=== PATIENT | female | born 1985 | race Caucasian/White ===

== ENCOUNTER 2021-01-06 13:55 | Outpatient (CLI) | payer BC, SELFPAY ==
--- NOTE | ~2021-01-06 | US_ITS ---
EXAMINATION: US OB transvaginal DATE: 01/06/2021 14:13 INDICATION: viability TECHNIQUE: Real-time transvaginal obstetric ultrasound. FINDINGS: No prior studies for comparison. Patient history there are previous ultrasounds at outside institution showing no evidence for h eart motions. The uterus measures 13.2 x 7.6 x 9.2 cm. There is an intrauterine gestational sac measuring 3.71 cm c orresponding to 8 week 6 day gestation. No pole or yolk sac are definitely identified. No heart motions detected. The ovaries are within normal limits without associated mass. No free fluid. IMPRESSION: 1. Intrauterine gestational sac without evidence for pole or yolk sac corresponding to 8 week 6 day gestation, compatible with blighted ovum/failed . Reviewed, dictated and finalized at location B. IMPRESSION: 1. Intrauterine gestational sac without evidence for pole or yolk sac cor responding to 8 week 6 day gestation, compatible with blighted ovum/failed preg rodney.
== END 2021-01-06 13:56 ==
LOC: MICIMG 13:56
PROVIDERS: Visit Provider Nurse Practitioner
DX: O36.80X1 Pregnancy with inconclusive fetal viability, fetus 1 (principal); Z3A.01 Less than 8 weeks gestation of pregnancy
CPT/HCPCS: 76817

== ENCOUNTER → 2021-01-07 00:34 | Outpatient (CLI) | payer BC, SELFPAY ==
[2021-01-07 17:32] LABS: SARS-CoV-2 RNA PCR Negative
== END ==
PROVIDERS: Visit Provider Obstetrics & Gynecology Gynecology
DX: Z01.812 Encounter for preprocedural laboratory examination (principal); Z20.822 Contact with and (suspected) exposure to COVID-19
CPT/HCPCS: C9803; U0003; U0005

== ENCOUNTER 2021-01-08 04:47 | Day surgery (SDC) | payer BC, SELFPAY ==
[2021-01-08 06:21] VITALS: BMI 29.7
[2021-01-08 06:26] VITALS: BP 165/96; PULSE 112; RESP 22; TEMP 36.3; O2SAT 100
[2021-01-08] MEDS: LACTATED RINGERS 1,000 ML 30 ML IV CONT (06:40)
[2021-01-08] MEDS: ACETAMINOPHEN 500 MG TABLET 1000 MG PO (06:47)
--- NOTE | 2021-01-08 07:10 | WPDANESEPPF ---
Anes - Initial Pre Proc Eval Procedure: Operation Date: 01/08/21 07:30 Proposed Procedures p Suction Dilatation and Curettage - Irma Gilmore MD Date/Time: 01/08/21 07:10 Surgeon: Irma Gilmore MD Pre Op Diagnosis: blighted ovum Patient Data Age: 35 Gender: F Height: 5 ft 3 in Weight: 76.2 kg Last Vital Signs Temp 36.3 C L 01/08/21 06:26 Pulse 112 H 01/08/21 06:26 Resp 22 H 01/08/21 06:26 BP 165/96 H 01/08/21 06:26 Pulse Ox 100 01/08/21 06:26 Allergies Allergy/AdvReac Type Severity Reaction Status Date / Time No Known Allergies Allergy Verified 01/08/21 06:51 Home Medications Medication Instructions Recorded Confirmed Type No Home Medications 01/08/21 01/08/21 History Patient hx anesthesia problems: none Family hx anesthesia problems: none PMFSH Social History Social History Smoking packs per day: 1 Smoking cigarettes per day: 20.0 Years smoked: 18 Smoking pack-years: 18.00 Smoking status: Current every day smoker Tobacco type: cigarettes Alcohol intake: current Substance use: current Substance use type: marijuana Living arrangements: with family Gender identity (if verbalized by the patient): Female Spiritual care concerns: No Agree to blood products: Yes Anes - Eval Final PreProcedure Day of Procedure 01/08/21 07:10 Patient weight: overweight Heart: regular rate and rhythm Lungs: clear to auscultation Airway: Mallampati scale class II Neurological: alert and oriented Last oral intake: >/= 8 hours ASA classification: II Emergent: no Anesthetic plan: proceed Anesthesia type and monitoring: general GIVS and standard monitoring Informed Consent: The patient's anesthetic plan and its attendant risks and benefits were discussed with the patient/family/POA. Questions were solicited and answers provided to the satisfaction of the patient/family/POA.
--- NOTE | 2021-01-08 07:17 | WPDHPUPDATE1 ---
History and Physical Update Update Date/Time: 01/08/21 07:17 History and Physical has been reviewed, including an updated exam of the patient. There are NO changes in the patient's condition. Risks, benefits, and alternatives have been discussed and questions answered. Patient agrees to proceed with procedure.
--- NOTE | 2021-01-08 07:17 | PM.HPGS ---
History of Present Illness History of Present Illness Consent: Risks, benefits, and alternatives have been discussed and questions answered. Patient agrees to proceed with procedure. Chief complaint: blighted ovum Narrative: Edyta Marques is a 35 year old female with u/s showing 8 6/7 wk sac without a yolk sac or pole. HCG is 9900. Discussed blighted ovum with couple and options given. Patient chose to proceed with D&C. Risks of infection, bleeding, and perforation discussed. Post op expectations discussed. Patient wants to start control pills post op. Questions answered and agrees to proceed. Review of Systems Review of Systems: Narrative: not repeated day of surgery; patient states no changes in status PMF Surgical History Surgical History (Updated 01/08/21 @ 07:19 by Irma Gilmore MD) History of S/P tonsillectomy Social History Social History Smoking packs per day: 1 Smoking cigarettes per day: 20.0 Years smoked: 18 Smoking pack-years: 18.00 Smoking status: Current every day smoker Tobacco type: cigarettes Alcohol intake: current Substance use: current Substance use type: marijuana Living arrangements: with family Gender identity (if verbalized by the patient): Female Spiritual care concerns: No Agree to blood products: Yes Meds Home Medications and Allergies Home Medications Medication Instructions Recorded Confirmed Type No Home Medications 01/08/21 01/08/21 History Allergies Allergy/AdvReac Type Severity Reaction Status Date / Time No Known Allergies Allergy Verified 01/08/21 06:51 Vital Signs Vital Signs - 24 hr 01/08/21 06:26 Temperature 97.4 F L Pulse Rate 112 H Respiratory Rate 22 H Blood Pressure 165/96 H Pulse Oximetry 100 Exam Const: General: comfortable and no acute distress : External Female Exam: normal external appearance Speculum Exam - Vagina: normal appearance of the vagina Speculum Exam - Cervix: normal appearance of the cervix Bimanual exam- vagina & uterus: normal bimanual exam Bimanual Exam- Adnexa, other: normal adnexae Assessment and Plan Assessment and plan (1) Missed : Code(s): O02.1 - Missed Status: Acute Assessment and Plan: Plan to proceed with suction D&C. Plan Loestrin 24 post op.
[2021-01-08] MEDS: METHYLERGONOVINE MALEATE 0.2 MG/ML VIAL IM (07:42)
[2021-01-08 07:55] VITALS: BP 157/93; PULSE 100; RESP 14; O2SAT 98
--- NOTE | 2021-01-08 07:57 | PM.PROC ---
Procedure Note - Detailed Date of procedure: 01/08/21 Pre-op diagnosis: blighted ovum Post-op diagnosis: same Procedure performed: suction D&C Description of procedure: The patient was taken to the operating room and placed in the dorsal lithotomy position under anesthesia. She was prepped and draped in the usual sterile fashion. The bivalve speculum was placed in the vagina and the cervix grasped on the anterior lip with a tenaculum. The cervix was injected in each quadrant with 1% lidocaine. The uterus is sounded to 10cm. The cervix is serially dilated with Hegar. The 8mm curved suction curette is used to evacuate the uterus until no further products were noted in the tubing. The medium sharp curette is used to curette the endometrium until a good uterine cry was noted in all areas. The suction curette was again placed and additional significant products of conception are noted. When no further products were noted in the tubing the medium sharp curette is again used to sharply curette the endometrium. The suction curette was again placed with minimal additional products noted on the 1st pass. Suctioning was continued until no further products were noted in the tubing. All instruments are removed and the patient is awakened from anesthesia. She was taken to recovery room in stable condition. Sponge, needle, and instrument counts are correct per the OR staff. Anesthesia: MAC and local Surgeon: Irma Gilmore MD Estimated blood loss (mL): 100 (total POC minimal blood loss) Drains: No Packing: No Pathology: yes (POC) Complications: No immediate complications Condition: stable Disposition: PACU Findings: uterus 10 cm; large POC noted
[2021-01-08 08:25] VITALS: BP 148/92; PULSE 96; RESP 14
[2021-01-08] MEDS: oxyCODONE HCL (*CRX) 5 MG TAB IR PO (08:28)
[2021-01-08] MEDS: ONDANSETRON INJ 4 MG/2 ML VIAL IV PUSH (08:33)
[2021-01-08 08:45] VITALS: BP 148/89; PULSE 95; RESP 14
== END 2021-01-08 08:55 | disposition home or self-care (01) ==
PROVIDERS: Visit Provider Obstetrics & Gynecology Gynecology
PROC: (CPT 59820; principal; 2021-01-08 07:30)
DX: O02.0 Blighted ovum and nonhydatidiform mole (principal); F12.90 Cannabis use, unspecified, uncomplicated; F17.210 Nicotine dependence, cigarettes, uncomplicated
CPT/HCPCS: 59820; 36415; 85461; 88305; A9270; J2210; J2250; J2405; J2704; J3010; J7120

== ENCOUNTER → 2021-02-26 10:30 | Outpatient (CLI) | payer BC, SELFPAY ==
--- NOTE | ~2021-02-26 | US_ITS ---
EXAMINATION: US OB transvaginal EXAM DATE: 02/26/2021 10:56 INDICATION: Dates uncertain. 1st trimester. TECHNIQUE: Pelvic obstetrical transvaginal sonogram was performed by a technologist. [facility] are [facility] grayscale and Doppler images available for interpretation. There are no earlier studies of this gestation for comparison. FINDINGS: Uterus measures 11.2 x 7.6 x 7.2 cm. There is intrauterine gestation sac. pole with heart rate confirmed at 110 beats per minute. The 5 mm crown-rump length corresponds to estimated g estational age by ultrasound of 6 weeks 1 day. Yolk sac is identified. Small subchorionic hemorrha ge measuring 1.4 cm diameter by 4 mm in thickness. Ovaries were not visualized. No adnexal mass. IMPRESSION: Early live intrauterine gestation. Small subchorionic hemorrhage. Reviewed, dictated and finalized at location A.
== END ==
PROVIDERS: Visit Provider Obstetrics & Gynecology Gynecology
DX: Z36.87 Encounter for antenatal screening for uncertain dates (principal); Z3A.01 Less than 8 weeks gestation of pregnancy
CPT/HCPCS: 76817

== ENCOUNTER → 2021-03-10 11:35 | Outpatient (CLI) | payer BC, SELFPAY ==
--- NOTE | ~2021-03-10 | US_ITS ---
EXAMINATION: US OB limited EXAM DATE: 03/10/2021 11:47 INDICATION: 1st trimester. Subchorionic hematoma. TECHNIQUE: Pelvic obstetrical transabdominal sonogram was performed by a technologist. There are mu ltiple grayscale and Doppler images available for interpretation. Comparison is made to prior examina tion from 02/26/2021. FINDINGS: Uterus measures 11.6 x 7.5 x 8.6 cm. There is intrauterine gestation sac. Cardiac activity confirmed on B-mode imaging. Normal-sized yolk sac. There is small subchorionic hematoma measuring 1 .4 x 0.7 x 1.0 cm. IMPRESSION: Live intrauterine gestation with persistent small subchorionic hematoma. Reviewed, dictated and finalized at location B. IMPRESSION: Live intrauterine gestation with persistent small subchorionic hem atoma.
== END ==
PROVIDERS: Visit Provider Obstetrics & Gynecology Gynecology
DX: O20.8 Other hemorrhage in early pregnancy (principal); Z3A.00 Weeks of gestation of pregnancy not specified
CPT/HCPCS: 76815

== ENCOUNTER → 2021-04-08 10:24 | Outpatient (CLI) | payer BC, SELFPAY ==
--- NOTE | ~2021-04-08 | US_ITS ---
EXAMINATION: US OB limited DATE: 04/08/2021 10:47 INDICATION: Subchorionic hematoma, first trimester TECHNIQUE: Real-time ultrasound of the pelvis was performed. The interpreting radiologist was not pre sent for the study. COMPARISON: 03/10/2021 FINDINGS: The uterus measures 14.2 x 8.5 x 11.2 cm. There is an intrauterine gestational sac. A large complex subchorionic hematoma seen to the right of the gestational sac which measures 8.3 x 3.0 x 3. 9 cm. A smaller subchorionic hematoma is seen to the left at the gestational sac measuring 3.2 x 0.6 x 0.8 cm. cardiac activity and movement are noted. heart rate is 137 beats per nancy te (bpm). The amniotic fluid index is subjectively normal. IMPRESSION: 1. Large right and moderate-sized left subchorionic hematomas. 2. Single live intrauterine . Reviewed, dictated and finalized at location B.
== END ==
PROVIDERS: Visit Provider Obstetrics & Gynecology Gynecology
DX: O20.8 Other hemorrhage in early pregnancy (principal); Z3A.00 Weeks of gestation of pregnancy not specified
CPT/HCPCS: 76815

== ENCOUNTER → 2021-04-21 11:09 | Outpatient (CLI) | payer BC, SELFPAY ==
--- NOTE | ~2021-04-21 | US_ITS ---
EXAMINATION: US OB limited EXAM DATE: 04/21/2021 11:39 INDICATION: F/U Subchorionic Hematoma. 3rd trimester. TECHNIQUE: Pelvic obstetrical transabdominal sonogram was performed by a technologist. There are mu ltiple grayscale and Doppler images available for interpretation. Comparison is made to prior examina tion from 08/09/2021. FINDINGS: The uterus measures 15.3 x 10.5 x 11.7 cm. There is live intrauterine gestation identified with heart rate confirmed at 153 bpm. There is heterogeneous right-sided subchorionic region suspicio us for subchorionic hematoma, dimensions today at 6.2 x 2.6 x 1.3 cm. Previously seen heterogeneous r egion on the left side of the subchorionic region is no longer identified. IMPRESSION: Live intrauterine gestation with moderate size right-sided subchorionic hematoma, resolu tion of the smaller other subchorionic hematoma. Reviewed, dictated and finalized at location A. IMPRESSION: Live intrauterine gestation with moderate size right-sided subchor ionic hematoma, resolution of the smaller other subchorionic hematoma.
== END ==
PROVIDERS: Visit Provider Obstetrics & Gynecology Gynecology
DX: O36.8910 Maternal care for other specified fetal problems, first trimester, not applicable or unspecified (principal); Z3A.00 Weeks of gestation of pregnancy not specified
CPT/HCPCS: 76815

== ENCOUNTER → 2021-05-07 10:49 | Outpatient (CLI) | payer BC, SELFPAY ==
--- NOTE | ~2021-05-07 | US_ITS ---
US OB limited 05/07/2021 11:59 Indication: Follow-up subchorionic hematoma Procedure: High-resolution Limited obstetrical ultrasound Comparison: 04/21/2021 Findings: There is a single living intrauterine with heart rate of 150 BPM. Fetus in breech presentation. Placenta is anterior and low lying measuring 2.9 cm to the cervix. Amniotic flui d is subjectively normal. No evidence for subchorionic hemorrhage. Impression: 1: Single living intrauterine in breech presentation. 2: Interval resolution of subchorionic hematoma. Reviewed, dictated and finalized at location A. Impression: 1: Single living intrauterine in breech presentation. 2: Interval resolution of subchorionic hematoma.
== END ==
PROVIDERS: Visit Provider Obstetrics & Gynecology Gynecology
DX: Z36.87 Encounter for antenatal screening for uncertain dates (principal); O32.1XX0 Maternal care for breech presentation, not applicable or unspecified; Z3A.00 Weeks of gestation of pregnancy not specified
CPT/HCPCS: 76815

== ENCOUNTER → 2021-06-18 08:58 | Outpatient (CLI) | payer BC, SELFPAY ==
--- NOTE | ~2021-06-18 | US_ITS ---
EXAMINATION: US OB /maternal detail DATE: 06/18/2021 09:52 INDICATION: Second trimester anatomic survey TECHNIQUE: Real-time ultrasound of the pelvis was performed. COMPARISON: None. FINDINGS: There is a single living fetus in breech presentation. The placenta is anterior and 2.6 cm from the i nternal cervical os. heart rate is 152 beats per minute (bpm). cardiac activity and feta l movement are noted. The amniotic fluid index is subjectively normal. The following anatomy was identified as normal: 4 chamber heart 3 vessel cord cord insertion kidneys urinary bladder stomach spine diaphragm ventricles cisterna magna cerebellum The following biometric data were obtained: Biparietal diameter (BPD): 5.1 cm; head circumference (HC): 20.3 cm; abdominal circumference (AC): 17 .6 cm; femur length (FL): 3.7 cm. These measurements are concordant. Estimated weight is 489 g +/- 73 g, which correlates with the 50th percentile when 10/21/2021 is used as estimated date of delivery. As single measurements, these parameters are each equal to the following estimated gestational ages w ith ranges of +/- 2 standard deviations: BPD: 21 weeks 4 days ( 19 weeks 6 days - 23 weeks 2 days). HC: 22 weeks 3 days ( 21 weeks 0 days - 24 weeks 0 days). AC: 22 weeks 4 days ( 20 weeks 3 days - 24 weeks 4 days). FL: 22 weeks 0 days ( 20 weeks 1 days - 23 weeks 5 days). estimated gestational age based solely on measurements from this exam is 22 weeks 1 days +/- 1 weeks 4 days. IMPRESSION: 1. Single living fetus in breech presentation. 2. Estimated weight is 489 g +/- 73 g, which correlates with the 50th percentile when 10/21/2021 is used as estimated date of delivery. Reviewed, dictated and finalized at location B. IMPRESSION: 1. Single living fetus in breech presentation. 2. Estimated weight is 489 g +/- 73 g, which correlates with the 50th per centile when 10/21/2021 is used as estimated date of delivery.
== END ==
PROVIDERS: Visit Provider Obstetrics & Gynecology Gynecology
DX: Z36.89 Encounter for other specified antenatal screening (principal); O32.1XX0 Maternal care for breech presentation, not applicable or unspecified; Z3A.22 22 weeks gestation of pregnancy
CPT/HCPCS: 76805

== ENCOUNTER 2021-09-22 21:40 | Outpatient (CLI) | payer OTHER, SELFPAY ==
--- NOTE | 2021-09-22 21:40 | PC.NURSE ---
Pt reported leaking after using the bathroom around 1500 today. Pt reports being clear fluid. Pt denies contractions and pain at this time.
[2021-09-22 22:20] VITALS: BP 148/99
[2021-09-22 22:24] VITALS: BP 143/92; PULSE 95
--- NOTE | 2021-09-22 22:30 | PC.NURSE ---
Dr. Vasquez notified of negative ROM. Blood pressures reported to . Order received for [facility] labs with P/C ratio. Will notify with results.
[2021-09-22 22:38] VITALS: BP 153/93; PULSE 90
[2021-09-22 23:03] LABS: Basophils Absolute Auto 0.1 K/mm3 (0.0-0.1); Basophils Percent Auto 0.3 % (0.2-1.2); Eosinophils Absolute Auto 0.3 K/mm3 (0-0.3); Eosinophils Percent Auto 2.1 % (0-4.4); Hematocrit 33.1 % (37.0-47.0); Hemoglobin 11.5 g/dL (12.0-15.0); Immature Granulocyte Percent A 0.7 % (0-0.5); Lymphocytes Percent Auto 17.9 % (18.3-44.2); Mean Corpuscular HGB Conc 34.7 g/dl (32-36); Mean Corpuscular Hemoglobin 28.9 pg (26-34); Mean Corpuscular Volume 83.2 fl (80-100); Mean Platelet Volume 10.3 fl (7.4-10.4); Monocytes Absolute Auto 1.1 K/mm3 (0.1-0.6); Monocytes Percent Auto 7.5 % (2.6-8.5); Neutrophils Absolute Auto 10.8 K/mm3 (1.3-6.7); Neutrophils Percent Auto 71.5 % (45.5-73.1); Platelet Count Result 256 k/mm3 (150-375); Red Blood Count 3.98 M/mm3 (4.2-5.4); Red Cell Distribution Width 11.8 % (11.5-14.5); White Blood Count 15.1 K/mm3 (4.5-10.0)
[2021-09-22 23:05] LABS: Add Urine Microscopic? NO; Appearance Urine Clear (Clear); Bilirubin Urine Negative (Negative); Blood Urine Negative (Negative); Color Urine Yellow (Yellow); Glucose Urine UA Negative (Negative); Ketones Urine Negative (Negative); Leukocyte Esterase Ur Negative LEU/UL (NEGATIVE); Nitrate Urine Negative (Negative); Protein Urine Negative (Negative); Specific Grav Ur 1.025 (1.001-1.035); Urobilinogen Urine Negative mg/dL (<2.0)
[2021-09-22 23:11] LABS: Alanine Aminotransferase 15 U/L (4-35); Albumin Level 3.7 g/dL (3.5-5.1); Alkaline Phosphatase 103 U/L (38-126); Anion Gap 3 mmol/L (8-16); Aspartate Amino Transferase 19 U/L (14-36); Bilirubin,Total 0.2 mg/dL (0.2-1.3); Blood Urea Nitrogen 13 mg/dL (7-17); Calcium 9.3 mg/dL (8.4-10.2); Carbon Dioxide 22 mmol/L (22-30); Chloride 107 mmol/L (98-107); Creatinine Urine 170.7 mg/dL; Estimated Glomerular Filt Rate > 60; Glucose 106 mg/dL (65-110); Potassium 3.6 mmol/L (3.4-5.0); Sodium 132 mmol/L (137-145); Total Protein Urine Random 13 mg/dL; Ur Ttl Prot Creatinine Ratio 0.08 mg/mg (0-0.20); Uric Acid 4.6 mg/dL (2.5-7.5)
[2021-09-22 23:14] VITALS: BP 144/87; PULSE 86
--- NOTE | 2021-09-22 23:20 | PC.NURSE ---
Dr. Anglin updated on pt lab results. Recent blood pressure reported to provider. Order received for pt to be started on the 100mg Labetalol BID first dose now. Watch pt for 45 min recheck blood pressure. Okay to discharge pt after.
[2021-09-22] MEDS: LABETALOL HCL 100 MG TABLET PO (23:27)
[2021-09-23 00:18] VITALS: BP 134/81; PULSE 83
== END 2021-09-23 00:24 | disposition home or self-care (01) ==
LOC: ANHOBOP 22:08 → ANHLDR 22:09
PROVIDERS: Obstetrics & Gynecology; Visit Provider Obstetrics & Gynecology Gynecology
DX: O42.913 Preterm premature rupture of membranes, unspecified as to length of time between rupture and onset of labor, third trimester (principal); Z3A.35 35 weeks gestation of pregnancy
CPT/HCPCS: 36415; 59025; 80053; 81003; 82570; 84112; 84156; 84550; 85025; 87086; 99199; A9270

== ENCOUNTER 2021-10-04 18:12 | Outpatient (RCR) | payer OTHER, SELFPAY ==
[2021-10-04 19:10] VITALS: BP 131/81; PULSE 83
[2021-10-04 19:11] LABS: Alanine Aminotransferase 18 U/L (4-35); Albumin Level 3.5 g/dL (3.5-5.1); Alkaline Phosphatase 102 U/L (38-126); Anion Gap 4 mmol/L (8-16); Aspartate Amino Transferase 19 U/L (14-36); Bilirubin,Total 0.2 mg/dL (0.2-1.3); Blood Urea Nitrogen 11 mg/dL (7-17); Carbon Dioxide 23 mmol/L (22-30); Chloride 105 mmol/L (98-107); Estimated Glomerular Filt Rate > 60; Glucose 116 mg/dL (65-110); Potassium 3.8 mmol/L (3.4-5.0); Sodium 132 mmol/L (137-145); Uric Acid 4.7 mg/dL (2.5-7.5)
[2021-10-04 19:17] LABS: Basophils Percent Auto 0.3 % (0.2-1.2); Eosinophils Absolute Auto 0.5 K/mm3 (0-0.3); Eosinophils Percent Auto 4.1 % (0-4.4); Hematocrit 32.5 % (37.0-47.0); Hemoglobin 11.3 g/dL (12.0-15.0); Immature Granulocyte Absolute 0.05 K/mm3 (0.00-0.031); Immature Granulocyte Percent A 0.4 % (0-0.5); Lymphocytes Absolute Auto 1.98 K/mm3 (0.9-3.2); Lymphocytes Percent Auto 15.7 % (18.3-44.2); Mean Corpuscular HGB Conc 34.8 g/dl (32-36); Mean Corpuscular Volume 83.3 fl (80-100); Mean Platelet Volume 10.1 fl (7.4-10.4); Monocytes Absolute Auto 1.1 K/mm3 (0.1-0.6); Monocytes Percent Auto 8.5 % (2.6-8.5); Platelet Count Result 239 k/mm3 (150-375); Red Cell Distribution Width 11.7 % (11.5-14.5); White Blood Count 12.6 K/mm3 (4.5-10.0)
== END 2022-01-02 23:59 | disposition home or self-care (01) ==
LOC: ANHOBOP 18:12
PROVIDERS: Obstetrics & Gynecology; Visit Provider Obstetrics & Gynecology Gynecology
DX: O16.3 Unspecified maternal hypertension, third trimester (principal); Z3A.37 37 weeks gestation of pregnancy
CPT/HCPCS: 36415; 59025; 80053; 81050; 82575; 84156; 84550; 85025

== ENCOUNTER 2021-10-04 18:12 | Outpatient (CLI) | payer OTHER, SELFPAY ==
[2021-10-04 18:40] VITALS: BMI 34.0
[2021-10-04 19:29] LABS: Collection Time Urine 24 HOURS
[2021-10-04 19:39] LABS: Creatinine Urine 105.3 mg/dL; Patient Weight 191 Lbs; Total Protein Urine Random 12 mg/dL
[2021-10-04 19:48] LABS: Total Protein Urine 24 Hr 168 mg/24hr (28-141); Total Volume 24 Hour Urine 1400 ml
[2021-10-04 19:50] LABS: Creatinine Clearance Urine 133.9 ml/min (75-125)
== END 2021-10-04 18:13 | disposition home or self-care (01) ==
LOC: ANHOBOP 18:25
PROVIDERS: Obstetrics & Gynecology; Visit Provider Obstetrics & Gynecology Gynecology
DX: Z34.90 Encounter for supervision of normal pregnancy, unspecified, unspecified trimester (principal); Z3A.00 Weeks of gestation of pregnancy not specified
CPT/HCPCS: 81050; 82575; 84156

== ENCOUNTER 2021-10-06 15:34 | Outpatient (CLI) | payer OTHER, SELFPAY ==
--- NOTE | ~2021-10-06 | US_ITS ---
EXAMINATION: US OB follow up DATE: 10/06/2021 16:18 INDICATION: Low amniotic fluid index TECHNIQUE: Real-time ultrasound of the pelvis was performed. The interpreting radiologist was not pre sent for the study. COMPARISON: 06/18/2021 FINDINGS: There is a single living fetus in vertex presentation. The placenta is anterior. heart rate is 142 beats per minute (bpm). The amniotic fluid volume is normal. The amniotic fluid index is 8.5 cm , which is normal (5th%-95%: 7.5-24.4 cm at 37 weeks estimated gestational age). The following biometric data were obtained: BPD: 9.3 cm -> 38 weeks 0 days Head circumference: 34.1 cm -> 39 weeks 1 days Abdominal circumference: 36.5 cm -> 40 weeks 3 days Femur length: 7.6 cm -> 38 weeks 6 days These measurements are concordant. Head circumference to abdominal circumference ratio: 0.93 (normal range 0.87-1.06). Estimated weight: 3846 g (+/-) 577 g or 8 lbs. 8 oz. (+/-) 1 lbs. 4 oz. IMPRESSION: 1. Single living fetus in vertex presentation with heart rate of 142 bpm. 2. Normal amniotic fluid index of 8.5. 3. Estimated weight is 94th percentile by Hadlock criteria when 10/21/2021 is used as the estima tony date of delivery (JULIO) based upon earliest ultrasound performed at this institution on 02/26/2021. Please correlate with clinical information or earlier ultrasounds for most accurate JULIO. Reviewed, dictated and finalized at location A. [facility] REPORTER IMPRESSION: 1. Single living fetus in vertex presentation with heart rate of 142 bpm. 2. Normal amniotic fluid index of 8.5. 3. Estimated weight is 94th percentile by Hadlock criteria when 10/21/2021 is used as the estimated date of delivery (JULIO) based upon earliest ultrasound performed at this institution on 02/26/2021. Please correlate with clinical inf ormation or earlier ultrasounds for most accurate JULIO.
== END 2021-10-06 15:35 | disposition home or self-care (01) ==
LOC: ANHIMG 15:44
PROVIDERS: Visit Provider Obstetrics & Gynecology
DX: O36.5930 Maternal care for other known or suspected poor fetal growth, third trimester, not applicable or unspecified (principal); Z3A.00 Weeks of gestation of pregnancy not specified
CPT/HCPCS: 76816

== ENCOUNTER 2021-10-13 16:22 | Outpatient (CLI) | payer OTHER, SELFPAY ==
[2021-10-13 17:07] LABS: Hematocrit 35.6 % (37.0-47.0); Hemoglobin 12.3 g/dL (12.0-15.0); Mean Corpuscular HGB Conc 34.6 g/dl (32-36); Mean Corpuscular Hemoglobin 28.1 pg (26-34); Mean Corpuscular Volume 81.5 fl (80-100); Mean Platelet Volume 10.6 fl (7.4-10.4); Platelet Count Result 253 k/mm3 (150-375); Red Blood Count 4.37 M/mm3 (4.2-5.4); Red Cell Distribution Width 11.7 % (11.5-14.5)
[2021-10-14 13:59] LABS: Rapid Plasma Reagin Non-Reactive (NonReactive)
== END 2021-10-13 16:23 | disposition home or self-care (01) ==
PROVIDERS: Visit Provider Obstetrics & Gynecology Gynecology
DX: O34.219 Maternal care for unspecified type scar from previous cesarean delivery (principal); Z3A.39 39 weeks gestation of pregnancy
CPT/HCPCS: 36415; 85027; 86592; 86850; 86900; 86901

== ENCOUNTER 2021-10-14 05:48 | Inpatient (IN) | payer OTHER, SELFPAY ==
--- NOTE | 2021-10-13 21:48 | PM.IMHP ---
H&P: HPI History of Present Illness Date/Time: 10/13/21 21:48 Chief Complaint: scheduled csection Narrative: 36 yo A2 admitted for repeat Csection at 39 wks. Patient complicated by GDMA2 and PIH. Previous csetion was performed for EFW being high. Patient has declined trial of labor and wishes to proceed with repeat csection. Risks of each were reviewed. labs: AB+; RPR -; HbSAg -; HIV -; GBS +. [facility] Past Medical History Medical History (Updated 10/13/21 @ 21:55 by Irma Gilmore MD) Anxiety Missed D&C 01/27 Surgical History Surgical History (Updated 10/13/21 @ 21:55 by Irma Gilmore MD) History of History of elective S/P tonsillectomy Family History Family History (Updated 09/30/21 @ 12:37 by Michelle Robledo RN) Other Adopted Social History Social History Smoking packs per day: 1 Smoking cigarettes per day: 20.0 Years smoked: 18 Smoking pack-years: 18.00 Smoking status: Current every day smoker Tobacco type: cigarettes Alcohol intake: current Substance use: current Substance use type: marijuana Gender identity (if verbalized by the patient): Female Spiritual care concerns: No Agree to blood products: Yes Meds Home Medications and Allergies Home Medications Medication Instructions Recorded Confirmed Type labetalol 100 mg PO Q12H #30 tablet 09/22/21 09/30/21 Rx PNV cmb#95-ferrous fumarate-FA 1 tablet PO DAILY 09/30/21 09/30/21 History [] cholecalciferol (vitamin D3) 50 mcg PO DAILY 09/30/21 09/30/21 History [Vitamin D3] Allergies Allergy/AdvReac Type Severity Reaction Status Date / Time bee venom protein (honey bee) Allergy Anaphylaxis Verified 09/30/21 13:14 [bees] Exam Narrative: wt 192 (prepreg 172) Const: General: healthy appearing and comfortable Resp: Effort & Inspection: normal respiratory effort GI: Inspection: other (gravid) GI Palp: Yes Other GI palpation findings present (Fundal height 39 cm) Assessment and Plan Assessment and plan (1) 39 weeks gestation of : Code(s): Z3A.39 - 39 weeks gestation of Status: Acute Assessment and Plan: Plan is to proceed with repeat LTCS (2) History of : Code(s): Z98.891 - History of uterine scar from previous surgery Status: Inactive
[2021-10-14] VITALS (45 sets, daily range): BP systolic 105–155; BP diastolic 54–105; PULSE 55–120; RESP 16–21; TEMP 36.1–36.6; O2SAT 100; BMI 34.2
--- NOTE | 2021-10-14 06:29 | LDADM ---
This patient, Edyta Marques, was admitted to Labor/Delivery/Recovery 120 on 10/14/21 at 05:48. Plans for labor, pain management and were discussed with patient. Patient/family oriented to hospital policies and general routines including ID bracelet, bed and alarms, visiting hours, pain management, procedures, bathroom and other care routines, personal items, smoking policy, room service/diet and guest tray routines, security routines, and visiting hours. Patient/Family are encouraged to report perceived risks to care and to ask questions if they do not understand what they are told or what they should do. See OBIX for further documentation.
[2021-10-14] MEDS: LACTATED RINGERS 1,000 ML 125 ML IV CONT ×2 (06:47→08:53)
[2021-10-14 06:51] LABS: Glucose Point of Care 102 mg/dl (65-105)
--- NOTE | 2021-10-14 06:57 | WPDHPUPDATE1 ---
History and Physical Update Update Date/Time: 10/14/21 06:57 History and Physical has been reviewed, including an updated exam of the patient. There are NO changes in the patient's condition. Risks, benefits, and alternatives have been discussed and questions answered. Patient agrees to proceed with procedure.
--- NOTE | 2021-10-14 07:16 | WPDANESEPPF ---
Anes - Initial Pre Proc Eval Procedure: Operation Date: 10/14/21 07:30 Proposed Procedures p Repeat Section - Irma Gilmore MD Date/Time: 10/14/21 07:16 Surgeon: Irma Gilmore MD Pre Op Diagnosis: C/S Patient Data Age: 36 Gender: F Height: 1.6 m Weight: 87.5 kg Last Vital Signs Pulse 85 10/14/21 06:41 BP 155/95 H 10/14/21 06:41 Allergies Allergy/AdvReac Type Severity Reaction Status Date / Time bee venom protein (honey bee) Allergy Anaphylaxis Verified 09/30/21 13:14 [bees] Home Medications Medication Instructions Recorded Confirmed Type labetalol 100 mg PO Q12H #30 tablet 09/22/21 09/30/21 Rx PNV cmb#95-ferrous fumarate-FA 1 tablet PO DAILY 09/30/21 09/30/21 History [] cholecalciferol (vitamin D3) 50 mcg PO DAILY 09/30/21 09/30/21 History [Vitamin D3] Laboratory Tests 10/14/21 10/14/21 10/14/21 06:40 06:44 06:44 Sodium Pending Potassium Pending Chloride Pending Carbon Dioxide Pending Anion Gap Pending BUN Pending Creatinine Pending Estim Creat Clear Calc Pending Estimated GFR Pending Glucose Pending POC Capillary Glucose 102 mg/dl mg/dl (65-105) Calcium Pending Total Bilirubin Pending AST Pending ALT Pending Alkaline Phosphatase Pending Total Protein Pending Albumin Pending Urine Opiates Screen Pending Urine Methadone Screen Pending Ur Barbiturates Screen Pending Ur Phencyclidine Scrn Pending Ur Amphetamine Screen Pending U Benzodiazepines Scrn Pending Urine Cocaine Screen Pending U Cannabinoids Screen Pending Patient hx anesthesia problems: none Family hx anesthesia problems: none Results Review: All pre-operative results and documents have been reviewed as part of the pre-operative evaluation. [facility] Past Medical History Medical History Anxiety Diabetes Hypertension Missed D&C 01/27 Surgical History Surgical History History of History of elective S/P tonsillectomy Family History Family History Other Adopted Social History Social History Smoking packs per day: 1 Smoking cigarettes per day: 20.0 Years smoked: 18 Smoking pack-years: 18.00 Smoking status: Light tobacco smoker Tobacco type: cigarettes Second hand tobacco smoke exposure: Yes Alcohol intake: current Substance use: current Substance use type: marijuana Gender identity (if verbalized by the patient): Female Spiritual care concerns: No Agree to blood products: Yes Anes - Eval Final PreProcedure Day of Procedure 10/14/21 07:16 Patient weight: obese Heart: regular rate and rhythm Lungs: clear to auscultation Airway: Mallampati scale class II Neurological: alert and oriented Last oral intake: >/= 8 hours ASA classification: III Emergent: no Anesthetic plan: proceed Anesthesia type and monitoring: regional spinal and standard monitoring Results Review: All pre-operative results and documents have been reviewed as part of the pre-operative evaluation. Informed Consent: The patient's anesthetic plan and its attendant risks and benefits were discussed with the patient/family/POA. Questions were solicited and answers provided to the satisfaction of the patient/family/POA.
[2021-10-14 08:00] LABS: Amphetamine Screen Urine Negative (Negative); Barbiturate Screen Urine Negative (Negative); Benzodiazepines Screen Urine Negative (Negative); Cannabinoid Screen Urine Positive (Negative); Cocaine Screen Urine Negative (Negative); Methadone Screen Urine Negative (Negative); Opiate Screen Urine Negative (Negative); Phencyclidine Screen Urine Negative (Negative)
--- NOTE | 2021-10-14 08:30 | P.OP_ITS ---
Procedure Note - Detailed Date of Procedure 10/14/21 Pre-op Diagnosis IUP 39 wks prior csection Post-op Diagnosis same Procedure Performed repeat LTCS Surgeon Irma Gilmore MD Anesthesia spinal Findings male with 9/9 Apgars weight 7#10oz normal appearing tubes, ovaries, and uterus membranes very adherent extensive dense adhesions of fascia, peritoneum, and rectus muscles Description of Procedure The patient is taken to the operating room and placed under spinal anesthesia. Once deemed adequate, she is prepped and draped in the usual sterile fashion. Pfannenstiel incision made through prior and carried to fascia which was nicked in the midline and extended laterally with mayos. Rectus muscles are dissected off anteriorly and posteriorly while tenting fascia. Mayos used to enter and open very scarred rectus muscles. Peritoneum is tented and entered with scissors. The incision is extended with sharp and blunt dissection. Bladder blade is placed and vesicouteine peritoneum is tented and entered. Bladder flap created with sharp and blunt dissection. Lower uterine incision is made with a scalpel and extended with blunt tracking. Membranes ruptured with clear fluid noted. Head brought into incision. Vacuum assist and fundal pressure with guidin g the vertex delivered the head with difficulty. The remainder of the infant was delivered and cord clamped. handed off to Rn. Uterus left in situ. Placenta delivered with cord traction. Membranes were very adherent to fundus and removed in many pieces with dry lap sponge. Once clear, the bladder blade replaced and the incision grasp lower edge with ring forcep. Uterine incision closed with 0-Monocryl in 2 layers. Good hemostasis noted. Iririgation of gutters and culdesac. Fascia close with 0-vicryl in running layer. SQ irrigated and made hemostatic with bovie. Skin closed with 4-0 vicryl in subcuticular fashion. Dermaflex placed. Sponge, needle, and instrument count correct per staff. Estimated Blood Loss -550.0 Drains Yes (burgess) Packing No Pathology yes (placenta) Complications No immediate complications Condition stable Disposition PACU
[2021-10-14] MEDS: OXYTOCIN 30 UNITS/NS 500 ML 30 UNITS/500 ML BAG 125 UNITS IV CONT (08:44)
--- NOTE | 2021-10-14 08:47 | PM.OBDSVD ---
DS: Admitting Diagnosis Discharge Date 10/16/21 Admitting Diagnosis IUP 39 wks Prior csection GDMA2 PIH DS: Discharge Diagnosis Discharge Diagnosis (1) 39 weeks gestation of : Code(s): Z3A.39 - 39 weeks gestation of Status: Acute (2) delivery delivered: Code(s): O82 - Encounter for delivery without indication Status: Acute (3) PIH ( induced hypertension): Code(s): O13.9 - Gestational [-induced] hypertension without significant proteinuria, unspecified trimester Status: Acute (4) GDM, class A2: Code(s): O24.419 - Gestational diabetes mellitus in , unspecified control Status: Acute OB - DS: Summary OB Procedures : NST, PIH Mgmt and Ultrasound OB Procedures Intrapartum: low cervical, transverse OB Procedures: : None Peripartum Data Delivery Method: Section Procedures: Procedures Operation Date: 10/14/21 07:30 Actual Procedure Side Surgeon p Repeat Section Irma Gilmore MD complications: none Status at Discharge Functional status at discharge: independent ambulation Overall status at discharge: patient is progressing back to baseline Time Spent with Patient Time attestation: Total time spent providing and/or coordinating discharge services: DS: Data Data Completed and Pending Pending studies at discharge: Pending at discharge 10/14/21 08:40 Surgical [PTH] Routine Labs on day of discharge: Labs from last 24 hours 10/14/21 10/14/21 10/14/21 06:44 06:44 06:40 Sodium Pending Potassium Pending Chloride Pending Carbon Dioxide Pending Anion Gap Pending BUN Pending Creatinine Pending Estim Creat Clear Calc Pending Estimated GFR Pending Glucose Pending POC Capillary Glucose 102 Calcium Pending Total Bilirubin Pending AST Pending ALT Pending Alkaline Phosphatase Pending Total Protein Pending Albumin Pending Urine Opiates Screen Negative Urine Methadone Screen Negative Ur Barbiturates Screen Negative Ur Phencyclidine Scrn Negative Ur Amphetamine Screen Negative U Benzodiazepines Scrn Negative Urine Cocaine Screen Negative U Cannabinoids Screen Positive A Discharge Plan Discharge Attending physician on discharge: Irma Gilmore Discharging Clinician: Maxwell Raygoza Anticipated Discharge Date/Time: 10/16/21 08:49 Patient Disposition: Home, Self-Care Activity: may shower, may drive after 2 weeks and pelvic rest Diet: regular Wound Care Instructions: incision open to air Discharge Instructions: Education: Mom and Baby Guide Given to: Mother Follow-Up: Call your delivering provider's office for an appointment to be seen in: 1 Week Mom and baby should come to the [facility] for the follow-up appointment. Appointment Date/Time: October 18, 2021 at 10:00 am What to expect at your follow-up visit: Physical Assessment Call [phone] if you are unable to keep your appointment time. BREAST CARE: * Wear a snug supportive bra. * For engorgement discomfort: Breast Feeding: * Apply warm moist washcloths * Express milk as needed to relieve engorgement * Wear loose clothing * For sore nipples: * Identify correct latch-on * Apply warm moist washcloths before and after nursing * Air dry nipples after nursing * May apply Lansinoh cream to nipples ABDOMINAL INCISION: * Allow incision to air dry * Do NOT use lotions for powders on your incision * When showering, allow soap and water to run over the incision, but do not wash incision PERINEAL CARE: * Until bleeding stops, use your uma bottle after urinating * Change your pad frequently throughout the day * No tub baths until seen by your physician - You may shower ACTIVIT
[2021-10-14 10:08] LABS: Alanine Aminotransferase 17 U/L (4-35); Alkaline Phosphatase 112 U/L (38-126); Anion Gap 3 mmol/L (8-16); Aspartate Amino Transferase 19 U/L (14-36); Bilirubin,Total 0.1 mg/dL (0.2-1.3); Blood Urea Nitrogen 8 mg/dL (7-17); Calcium 8.4 mg/dL (8.4-10.2); Carbon Dioxide 21 mmol/L (22-30); Chloride 106 mmol/L (98-107); Estimated CRCL calculation 139 ml/min; Estimated Glomerular Filt Rate > 60; Glucose 98 mg/dL (65-110); Sodium 130 mmol/L (137-145)
[2021-10-14] MEDS: KETOROLAC 30 MG/ML VIAL (*BKC) IV PUSH (10:14)
--- NOTE | 2021-10-14 10:31 | PC.NURSE ---
Patient transferred to post room #281 via stretcher. Support person present. Oriented to unit, room, information board, rooming in, admission packet and security measures. Patient verbalizes understanding.
[2021-10-14] MEDS: LORATADINE 10 MG TABLET PO (11:38)
[2021-10-14] MEDS: HYDROcodone/acetaminophen (*CRX) 5-325 MG TABLET 1 TAB PO ×3 (11:41→21:47)
[2021-10-14] MEDS: LABETALOL HCL 100 MG TABLET PO ×2 (11:41→21:47)
[2021-10-14] MEDS: DEXTROSE 5%/0.45% SOD CHL 1,000 ML 125 ML IV CONT (13:01)
[2021-10-14] MEDS: IBUPROFEN 600 MG TABLET PO (21:47)
[2021-10-14] MEDS: diphenhydrAMINE HCl INJ 50 MG/ML VIAL 25 MG IV PUSH (21:48)
[2021-10-15] VITALS (8 sets, daily range): BP systolic 124–152; BP diastolic 78–93; PULSE 70–102; RESP 16–20; TEMP 36.2–37.1; O2SAT 97
[2021-10-15] MEDS: IBUPROFEN 600 MG TABLET PO ×4 (03:17→21:30)
[2021-10-15] MEDS: HYDROcodone/acetaminophen (*CRX) 5-325 MG TABLET 1 TAB PO ×4 (03:17→21:31)
[2021-10-15 04:05] LABS: Basophils Absolute Auto 0.1 K/mm3 (0.0-0.1); Basophils Percent Auto 0.3 % (0.2-1.2); Eosinophils Absolute Auto 0.7 K/mm3 (0-0.3); Eosinophils Percent Auto 3.3 % (0-4.4); Hematocrit 30.6 % (37.0-47.0); Hemoglobin 10.5 g/dL (12.0-15.0); Immature Granulocyte Absolute 0.11 K/mm3 (0.00-0.031); Immature Granulocyte Percent A 0.5 % (0-0.5); Lymphocytes Absolute Auto 1.78 K/mm3 (0.9-3.2); Lymphocytes Percent Auto 8.8 % (18.3-44.2); Mean Corpuscular HGB Conc 34.3 g/dl (32-36); Mean Corpuscular Hemoglobin 28.6 pg (26-34); Mean Corpuscular Volume 83.4 fl (80-100); Mean Platelet Volume 11.1 fl (7.4-10.4); Monocytes Percent Auto 4.8 % (2.6-8.5); Neutrophils Absolute Auto 16.7 K/mm3 (1.3-6.7); Neutrophils Percent Auto 82.3 % (45.5-73.1); Platelet Count Result 191 k/mm3 (150-375); Red Blood Count 3.67 M/mm3 (4.2-5.4); Red Cell Distribution Width 11.9 % (11.5-14.5); White Blood Count 20.3 K/mm3 (4.5-10.0)
--- NOTE | 2021-10-15 07:59 | PM.OBPNVD ---
OB - PN: Subj Subjective Date/time seen: 10/15/21 07:59 Patient comments: no complaints and pain well controlled baby status: doing well OB - PN: Obj Data Labs CBC & Chem 7: 10/15/21 03:31 10/14/21 09:32 Labs: Laboratory Results - last 24 hr 10/14/21 10/14/21 10/15/21 06:44 09:32 03:31 WBC 20.3 H RBC 3.67 L Hgb 10.5 L Hct 30.6 L MCV 83.4 MCH 28.6 MCHC 34.3 RDW 11.9 Plt Count 191 MPV 11.1 H Immature Gran % (Auto) 0.5 Neut % (Auto) 82.3 H Lymph % (Auto) 8.8 L [place] % (Auto) 4.8 Eos % (Auto) 3.3 Baso % (Auto) 0.3 Lymph # (Auto) 1.78 [place] # (Auto) 1.0 H Eos # (Auto) 0.7 H Baso # (Auto) 0.1 Abs Immat Gran (auto) 0.11 H Absolute Neuts (auto) 16.7 H Absolute Nucleated RBC 0.0 Nucleated RBC % 0.0 Sodium 130 L Potassium 4.0 Chloride 106 Carbon Dioxide 21 L Anion Gap 3 L BUN 8 Creatinine 0.50 L Estim Creat Clear Calc 139 Estimated GFR > 60 Glucose 98 Calcium 8.4 Total Bilirubin 0.1 L AST 19 ALT 17 Alkaline Phosphatase 112 Total Protein 5.0 L Albumin 3.0 L Urine Opiates Screen Negative Urine Methadone Screen Negative Ur Barbiturates Screen Negative Ur Phencyclidine Scrn Negative Ur Amphetamine Screen Negative U Benzodiazepines Scrn Negative Urine Cocaine Screen Negative U Cannabinoids Screen Positive A OB - PN A/P Plan day: 1 Plan: routine care and other (plans condoms until Liletta) Time Spent With Patient Time: Total time spent is greater than 50% in coordination of care (as documented) at patient's floor/unit and/or counseling patient: Exam Narrative: inc c/d/i : Bimanual exam- vagina & uterus: other (Uterus firm, nt @U)
[2021-10-15] MEDS: MULTIVIT/MIN/PREN/FOL AC/IRON TABLET 1 TAB PO (09:56)
[2021-10-15] MEDS: LABETALOL HCL 100 MG TABLET PO ×2 (09:56→21:30)
[2021-10-15] MEDS: DOCUSATE SODIUM 100 MG CAPSULE PO ×2 (09:57→17:14)
--- NOTE | 2021-10-15 10:00 | WPDANLDPN2 ---
Anes-Prog Note L&D Date/Time: 10/15/21 10:00 Comfortable throughout: section Neuraxial method: spinal Epidural/Spinal procedure site: clean & non-tender Neuro status: Neuro function grossly intact. Cardiovascular status: normal Respiratory status: normal Airway patency: baseline Mental status: baseline Post-Op hydration status: normal Vital Signs: Last Vital Signs Temp 36.6 C 10/15/21 03:30 Pulse 95 10/15/21 09:56 Resp 16 10/15/21 03:30 BP 124/78 10/15/21 03:30 Pulse Ox 100 10/14/21 15:15 Pain score (VAS): 4 I/O: Intake & Output 10/14/21 10/15/21 10/15/21 23:59 07:59 15:59 Intake Total 1500 600 Output Total 700 2000 Balance 800 -1400 Post-procedural complaints: none Patient feedback: Patient satisfied with anesthetic care.
--- NOTE | 2021-10-15 10:00 | WPDANLDNPN2 ---
Anes-Prog Note L&D-Neuraxial Date/Time: 10/15/21 10:00 Neuraxial medications: intrathecal PF morphine Opiod-related complaints: none Patient feedback: Patient satisfied with post-operative pain management.
--- NOTE | 2021-10-15 11:23 | PC.NURSE ---
0754 - Mother verbalizes she is able to independently latch with appropriate positioning/alignment. She denies any nipple discomfort, is feeding as required and waking infant to feed if needed. is currently meeting outcomes for weight, output, jaundice and feeding frequencies. Mother states she does not require feeding assist/education at this time. Mom plans to pump and feed at this time. Reviewed resources in the Mom/Baby guide. Instructed mother to call out for future feedings if assistance is needed.
--- NOTE | 2021-10-15 11:43 | PCCCNOTE ---
Addendum entered by DOTTIE Diego 10/15/21 12:57: Recvd email from DCFS: The information you provided did not meet one of the criteria for an investigation (eligible victim, eligible perpetrator, eligible event, or jurisdiction). The information as been documented and will be kept on file. Should you learn of further information or have additional concerns, please feel free to contact us. Original Note: Met with pt. after receiving notification that pt. tested positive for THC, during UDS. Baby boy's UDS was also positive for THC. Baby's meconium is pending. Pt. reports using THC during to help with her nausea. Pt, YARAIan Jones(who was at bedside), baby boy, and 9 year old daughter Angelika will be living in [place]. Pt. reports her family is very supportive and lives right down the road. Pt. reports having all necessary baby supplies, and denies needs. Pt. reports will work to get established with [place] but is over qualified for [employer]. Pt. denies prior involvement with DCFS. resources provided. Online Report filed - intake id #[id number]. JOANNA smith.
--- NOTE | 2021-10-15 23:08 | PC.NURSE ---
Notified per telephone by Thalia, in labratory, that bilirubin specimen was hemolyzed.
[2021-10-16] VITALS (9 sets, daily range): BP systolic 133–155; BP diastolic 84–96; PULSE 78–95; RESP 16–18; TEMP 36.1–37; O2SAT 98–100
[2021-10-16] MEDS: HYDROcodone/acetaminophen (*CRX) 5-325 MG TABLET 1 TAB PO ×3 (06:37→21:06)
[2021-10-16] MEDS: IBUPROFEN 600 MG TABLET PO ×3 (06:40→21:06)
[2021-10-16] MEDS: MULTIVIT/MIN/PREN/FOL AC/IRON TABLET 1 TAB PO (08:26)
[2021-10-16] MEDS: LABETALOL HCL 100 MG TABLET PO ×2 (08:26→21:05)
[2021-10-16] MEDS: DOCUSATE SODIUM 100 MG CAPSULE PO ×2 (08:26→17:30)
--- NOTE | 2021-10-16 10:48 | P.DS_ITS ---
DS: Admitting Diagnosis Discharge Date 10/17/2021 Admitting Diagnosis OB - DS: Summary OB Procedures : None OB Procedures Intrapartum: OB Procedures: : None Peripartum Data Procedures: Procedures Operation Date: 10/14/21 07:30 Actual Procedure Side Surgeon p Repeat Section Irma Gilmore MD Time Spent with Patient Time attestation: Total time spent providing and/or coordinating discharge services: DS: Data Data Completed and Pending Pending studies at discharge: Pending at discharge 10/14/21 08:40 Surgical [PTH] Routine Discharge Plan Discharge Attending physician on discharge: Irma Gilmore Discharging Clinician: Maxwell Raygoza Anticipated Discharge Date/Time: 10/16/21 08:49 Patient Disposition: Home, Self-Care Activity: may shower, may drive after 2 weeks and pelvic rest Diet: regular Wound Care Instructions: incision open to air Patient Instructions: Antibiotic Form Stand Alone Forms: General Discharge Information Follow-up/Referrals: Irma Gilmore MD [Physician] - 1 Week (and 6) Discharge Medications: New hydrocodone-acetaminophen 5-325 mg tablet 1 tablet PO Q4H PRN (Reason: pain) Qty: 30 RF: 0 Continued cholecalciferol (vitamin D3) [Vitamin D3] 50 mcg (2,000 unit) Capsule 50 mcg PO DAILY RF: 0 PNV cmb#95-ferrous fumarate-FA [] 28 mg iron- 800 mcg Tablet 1 tablet PO DAILY RF: 0 labetalol 100 mg Tablet 100 mg PO Q12H Qty: 30 RF: 0 Date of admission: 10/14/21 05:48 Primary Care Provider: PHYSICIAN,SOCIAL MEDIA MARKETING ANALYST Admitting Provider: Irma Gilmore Attending physician on admission: Irma Gilmore Condition: Stable Care Plan Goals: Plans condoms until Liletta
[2021-10-17 02:28] VITALS: BP 132/89
[2021-10-17] MEDS: IBUPROFEN 600 MG TABLET PO ×2 (02:53→09:09)
[2021-10-17] MEDS: HYDROcodone/acetaminophen (*CRX) 5-325 MG TABLET 1 TAB PO ×3 (02:53→13:02)
--- NOTE | 2021-10-17 07:35 | PM.OBDSVD ---
DS: Admitting Diagnosis Discharge Date 10/17/2021 Admitting Diagnosis OB - DS: Summary OB Procedures : None OB Procedures Intrapartum: OB Procedures: : None Peripartum Data Procedures: Procedures Operation Date: 10/14/21 07:30 Actual Procedure Side Surgeon p Repeat Section Irma Gilmore MD Time Spent with Patient Time attestation: Total time spent providing and/or coordinating discharge services: DS: Data Data Completed and Pending Pending studies at discharge: Pending at discharge 10/14/21 08:40 Surgical [PTH] Routine Discharge Plan Discharge Attending physician on discharge: Irma Gilmore Discharging Clinician: Maxwell Raygoza Anticipated Discharge Date/Time: 10/16/21 08:49 Patient Disposition: Home, Self-Care Activity: may shower, may drive after 2 weeks and pelvic rest Diet: regular Wound Care Instructions: incision open to air Patient Instructions: Antibiotic Form Stand Alone Forms: General Discharge Information Follow-up/Referrals: Irma Gilmore MD [Physician] - 1 Week (and 6) Discharge Medications: New hydrocodone-acetaminophen 5-325 mg tablet 1 tablet PO Q4H PRN (Reason: pain) Qty: 30 RF: 0 Continued cholecalciferol (vitamin D3) [Vitamin D3] 50 mcg (2,000 unit) Capsule 50 mcg PO DAILY RF: 0 PNV cmb#95-ferrous fumarate-FA [] 28 mg iron- 800 mcg Tablet 1 tablet PO DAILY RF: 0 labetalol 100 mg Tablet 100 mg PO Q12H Qty: 30 RF: 0 Date of admission: 10/14/21 05:48 Primary Care Provider: PHYSICIAN,INSURANCE VERIFICATION REPRESENTATIVE Admitting Provider: Irma Gilmore Attending physician on admission: Irma Gilmore Condition: Stable Care Plan Goals: Plans condoms until Liletta
[2021-10-17 08:00] VITALS: PULSE 79; RESP 18; O2SAT 100
[2021-10-17 08:25] VITALS: BP 144/88; PULSE 79; RESP 18; TEMP 36.1
[2021-10-17 09:06] VITALS: PULSE 79
[2021-10-17] MEDS: LABETALOL HCL 100 MG TABLET PO (09:06)
[2021-10-17] MEDS: DOCUSATE SODIUM 100 MG CAPSULE PO (09:08)
[2021-10-17] MEDS: LORATADINE 10 MG TABLET PO (09:08)
[2021-10-17] MEDS: MULTIVIT/MIN/PREN/FOL AC/IRON TABLET 1 TAB PO (09:08)
--- NOTE | 2021-10-17 10:51 | PC.NURSE ---
Patient viewed the discharge video Mother & Baby Care, The First Two Weeks . Patient was given the opportunity and encouraged to ask questions. Patient verbalized understanding of information shared and has been given the mother/baby guide for home reference.
[2021-10-18 12:41] VITALS: BP 141/79; PULSE 87; RESP 20
== END 2021-10-17 13:44 | disposition home or self-care (01) | DRG 540 ==
LOC: ANHLDR 10-19 11:44 → ANHOB2 10-19 11:44
PROVIDERS: Admitting Provider Obstetrics & Gynecology Gynecology; Visit Provider Obstetrics & Gynecology
PROC: 10D00Z1 Extraction of Products of Conception, Low, Open Approach (ICD-10-PCS; CPT 59514; principal; 2021-10-14 07:30)
DX: O34.219 Maternal care for unspecified type scar from previous cesarean delivery (principal); O24.429 Gestational diabetes mellitus in childbirth, unspecified control; O13.4 Gestational [pregnancy-induced] hypertension without significant proteinuria, complicating childbirth; O99.334 Smoking (tobacco) complicating childbirth; F17.210 Nicotine dependence, cigarettes, uncomplicated; O99.824 Streptococcus B carrier state complicating childbirth; Z3A.39 39 weeks gestation of pregnancy; Z37.0 Single live birth; O99.62 Diseases of the digestive system complicating childbirth; K66.0 Peritoneal adhesions (postprocedural) (postinfection)
CPT/HCPCS: 36415; 80053; 80307; 82948; 85025; 88307; A9270; J0131; J1200; J1885; J2274; J2370; J2590; J7120